=== PATIENT | female | born 1955 | race African-American/Black ===

== ENCOUNTER → 2016-06-21 | Outpatient (CLI) | payer MEDICARE, OTHER ==
[~2016-06-21] MED LIST: ALBUAER3 INH; AMIT25TA9 PO; AMLO10 PO; ANAS1TAB PO; BUME1TAB28 PO; BUME2TAB PO; CALC1TAB16 PO; GABA300C5 PO; HYDR50TA3 PO; LATA0.002 EACH EYE; LIDO1CRE31 TOPICAL; LORA1TAB12 PO; MECL25CH CHEW; METO100T9 PO; MONT10TA4 PO; POTA10TA2 PO; RISP0.5T20 PO; ROPI1TAB PO; SERT-129 PO; SERT-132 PO; TAMO20TA6 PO; ZYRT10CA PO
[2016-06-21 10:47] LABS: AUTOMATED NEUTROPHIL # 3.1 TH/MM3 (1.8-7.7); BASOPHIL # 0.1 TH/MM3 (0-0.2); EOSINOPHIL # 0.2 TH/MM3 (0-0.4); HEMATOCRIT 36.8 % (35.0-46.0); HEMO FLAGS DIFF FINAL; LYMPH % 20.2 % (9.0-44.0); MEAN CORPUSCULAR HEMOGLOBIN 28.8 PG (27.0-34.0); MEAN CORPUSCULAR HGB CONC 33.4 % (32.0-36.0); MONO % 11.7 % (0.0-8.0); NEUT % 63.1 % (16.0-70.0); PLATELET COUNT 335 TH/MM3 (150-450); RED BLOOD COUNT 4.28 MIL/MM3 (4.00-5.30); WHITE BLOOD COUNT 4.9 TH/MM3 (4.0-11.0)
--- NOTE | 2016-06-21 16:09 | EKG ---
Date Performed: 06/21/2016 Time Performed: 10:35:31 PTAGE: 60 years EKG: Sinus rhythm NORMAL ECG PREVIOUS TRACING : 01/03/2015 13.26 Compared to prior tracing no significant change DOCTOR: Chema Castorena Interpretating Date/Time 06/21/2016 16:08:57
== END ==
LOC: CPRE 09:56
PROVIDERS: ATTEND Surgery
DX: Z01.810 Encounter for preprocedural cardiovascular examination (principal); Z01.812 Encounter for preprocedural laboratory examination; C50.911 Malignant neoplasm of unspecified site of right female breast
CPT/HCPCS: 36415; 85025; 93005

== ENCOUNTER → 2016-07-03 | Day surgery (SDC) | payer MEDICARE, OTHER ==
[~2016-07-03] VITALS: Ht 179.3 cm; Wt 104.5 kg
[~2016-07-03] MED LIST changes: +BUPIVACAINE/EPINEPHRINE 0.5% PF 30 ML VIAL ONE; +ISOSULFAN BLUE 50 MG/5 ML VIAL SQ ONE; +LACTATED RINGER'S 1000 ML INJ 1,000 ML IV ONE; +LACTATED RINGER'S 1000 ML INJ 1,000 ML ONE; +LIDOCAINE HCL 1% 20 ML VIAL ONE; +MIDAZOLAM HCL 2 MG/2 ML VIAL ONE; +MORPHINE SULFATE 4 MG/ML INJ ONE; +NEOSTIGMINE METHYLSULFATE 10 MG/10 ML VIAL IV PUSH ONE; +ONDANSETRON HCL 4 MG/2 ML VIAL IV PUSH ONE; +ONDANSETRON HCL 4 MG/2 ML VIAL ONE; +PROMETHAZINE INJ 25 MG/ML VIAL ONE; +PROPOFOL 200 MG/20 ML AMP IV ONE; +SODIUM CHLORIDE 0.9% 20 ML VIAL ONE; +ceFAZolin 2 GM PREMIX 50 ML ONE; +ePHEDrine/NS 25 MG/5 ML SYR IV ONE; +fentaNYL CITRATE 250 MCG/5 ML AMP ONE; +traMADol HCL 50 MG TAB ONE
[2016-07-03 08:52] VITALS: BP 142/69; PULSE 69; RESP 14; TEMP 97.6; O2SAT 99
--- NOTE | 2016-07-03 10:12 | RADRPT ---
EXAM DATE/TIME: 07/03/2016 08:46 [facility] COMPARISON: No previous studies available for comparison. INDICATIONS : Right breast cancer. MEDICAL HISTORY : Hypertension. Hernia, hiatal. Breast cancer. Arthritis. Chemotherapy. Radiation therapy. C-Diff. SURGICAL HISTORY : Tonsillectomy. Hysterectomy. Right lumpectomy. Colectomy. Right hernia repair. ENCOUNTER: Initial ACUITY: 1 day PAIN SCORE: 1/10 LOCATION: Right breast. AREA EVALUATED: Right breast, upper quadrant; at 7 o'clock Radiopharmaceutical dose: 1.0 mCi Tc99m [place] colloid FINDINGS: Breast ultrasound was performed prior to lymphoscintigraphy. Subcutaneous and subdermal injections w ere made in the vicinity of the biopsy proven right breast cancer.CONCLUSION: Successful ultrasound-guided lymphoscintigraphy injections within the right breast. Ángel Pedersen MD on July 03, 2016 at 10:06 Board Certified Radiologist. This report was verified electronically.
--- NOTE | 2016-07-03 10:53 | RADRPT ---
EXAM DATE/TIME: 07/03/2016 09:11 [facility] COMPARISON: No previous studies available for comparison. EXTERNAL COMPARISON : [facility], MG MAMMOGRAM, [facility] [place], [facility]TE, MAY 01, 2016; [facility], US BREAST DX RIGHT, 2015. INDICATIONS : Right sided breast cancer. DOSE: 1.0 mCi Tc99m Sulfur Colloid deep and intradermal INJECTION SITE: Right Breast MEDICAL HISTORY : Gastroesophageal reflux disease. Diabetes mellitus type 2. Carcinoma, breast. Hypertension. SURGICAL HISTORY : Hysterectomy. Lumbar laminectomy, lumpectomy, right hernia repair, right great tow, tonsillectomy and cysts removed from throat. ENCOUNTER: Initial ACUITY: >1 yr PAIN SCALE: 0/10 LOCATION: Right Breast. TECHNIQUE: Injection(s) of sulfur colloid was performed under sonographic guidance. Static imaging was obtained .. FINDINGS: Initial anterior and posterior views of the injection site were obtained. Dr. Amaya did not request delayed views for [place] node uptake confirmation. CONCLUSION: Initial views of the lymphoscintigraphy injection site were obtained. Ángel Pedersen MD on July 03, 2016 at 10:30 Board Certified Radiologist. This report was verified electronically.
[2016-07-03 16:18] VITALS: TEMP 97.9
[2016-07-03 17:10] VITALS: BP 139/61; PULSE 55; RESP 14; O2SAT 93
--- NOTE | 2016-07-04 07:39 | MP ---
cc: DENIA ELIAS DATE OF SURGERY 07/03/2016 PRINCIPAL DIAGNOSIS Recurrent right breast cancer. PROCEDURE PERFORMED Right mastectomy and right axillary sentinel lymph node biopsy. SURGEON Denia Elias MD ANESTHESIA General via LMA device. INDICATION The patient is a 60-year-old female status post a right breast lumpectomy and sentinel lymph node biopsy followed by whole breast radiation approximately two years ago for a clinical stage I breast cancer. She developed a recent chest wall recurrence which is biopsy-proven and now presents for definitive mastectomy. FINDINGS AT THE TIME OF SURGERY No obvious adenopathy was identified. Two sentinel lymph nodes were removed because they were slightly suspicious, but there was no radioactive count or blue dye uptake in the axilla. PROCEDURE PERFORMED After informed consent was obtained and site verification was performed, the patient was brought to the radiology suite where she underwent nallely-tumor radionuclide injection. She was then brought to the major operating room where she underwent general anesthesia via an LMA device. She was given a single dose of IV Ancef and sequential compression hose were placed. The right breast and arm were prepped and draped in a sterile fashion. An elliptical incision was marked out and 180 cc of tumescent solution mixed with 30 cc of 0.5% Marcaine with epinephrine were then infiltrated in and the plane between the subcutaneous fat and anterior breast fascia circumferentially around the breast. Sharp dissection was then performed in the same plane medially to the parasternal area, superiorly to the clavicle, laterally to the axilla, and inferiorly to the anterior rectus sheath. The breast was then dissected off the pectoralis muscle using electrocautery to include the pectoralis fascia with the specimen. The breast was oriented with the skin anterior, one short suture superiorly, and one long suture laterally and was then sent for permanent pathologic evaluation. Hemostasis was easily obtained with electrocautery and the clavipectoral fascia was then divided. There were some small palpable lymph nodes in the axillary tail of [place] which were dissected free from the surrounding breast tissue using a harmonic scalpel, but this had no count and was not suspicious and they were sent as an axillary specimen. Two mid level I lymph nodes were identified which were somewhat enlarged, although they had no count or blue dye uptake. Each of these nodes was circumferentially dissected free from surrounding structures using the harmonic scalpel and these were considered suspicious and were sent as sentinel lymph nodes one and two. Some additional level I smaller nodes were removed using circumferential harmonic scalpel dissection and these were sent as a permanent axillary specimen. Good hemostasis was noted and a stab wound was created along the anterior axillary line. A hemostat was used to secure a 10-[place] drain along the chest wall and it was secured to the skin with a 3-0 nylon suture. The wound was then closed using interrupted 3-0 Vicryl subcutaneous sutures and a 4-0 Monocryl subcuticular suture. Steri-Strips and sterile dressing were applied. The patient tolerated the procedure well with an estimated blood loss of 50 cc and she was extubated in the operating room and brought to the recovery room in good condition. All sponge and needle counts were correct at the conclusion of the case. MD ROYCE Rubin/[id number] /2:20 PM /7:29 AM
== END | disposition home or self-care (01) ==
LOC: CSDC 06:56
PROVIDERS: ATTEND Surgery
DX: C50.911 Malignant neoplasm of unspecified site of right female breast (principal); I10 Essential (primary) hypertension; E11.9 Type 2 diabetes mellitus without complications; K21.9 Gastro-esophageal reflux disease without esophagitis; M19.90 Unspecified osteoarthritis, unspecified site
CPT/HCPCS: 00400; 19303; 38500; 38900; 76642; 78195; 88307; 88309; A9541; J0690; J2250; J2270; J2405; J2550; J2710; J3010; J7120; Q9968